=== PATIENT | female | born 1995 | race Two or more races ===

== ENCOUNTER 2025-06-22 08:50 | Outpatient (CLI) | payer OTHER ==
[2025-06-22 09:49] LABS: Hemoglobin 15.9 g/dL (12.2-16.2); Urine Protein, UAD Negative (Negative)
[2025-06-22 09:51] LABS: Alanine Aminotransferase 24 U/L (7-40); Alkaline Phosphatase 104 U/L (46-116); Anion Gap 12 (5-15); BUN/Creatinine Ratio 15.4 (10.0-20.0); Blood Urea Nitrogen 14 mg/dL (9-23); Calcium 9.6 mg/dL (8.7-10.4); Carbon Dioxide 23 mmol/L (20-31); Chloride 106 mmol/L (98-107); Glucose 99 mg/dL (74-106); Hematocrit 46.0 % (36.0-46.0); Mean Corpuscular Hemoglobin 33.6 pg (28.0-32.0); Mean Corpuscular Volume 97.4 fL (80.0-100.0); Nucleated Red Blood Cells % 0.2 %; Potassium 4.1 mmol/L (3.5-5.1); Sodium 141 mmol/L (136-145); Total Protein 7.8 g/dL (5.7-8.2); Triglycerides 116 mg/dL (< 150)
[2025-06-22 09:52] LABS: Bilirubin, Total 0.4 mg/dL (0.2-1.0); HDL Cholesterol 58 mg/dL (40-59)
[2025-06-22 09:53] LABS: Albumin 5.0 g/dL (3.2-4.8); Cholesterol 209 mg/dL (< 200)
[2025-06-22 09:54] LABS: INR 0.97 (0.9-1.15); Partial Thromboplastin Time 26.5 SEC (24.5-34.5); Prothrombin Time 10.3 sec (9.3-11.8)
[2025-06-22 10:23] LABS: Iron 78.0 ug/dL (50-170)
[2025-06-22 10:26] LABS: Total Iron Binding Capacity 311.0 ug/dL (250-425)
[2025-06-22 12:08] LABS: Hepatitis A Total Antibody Positive (Negative); Hepatitis B Surface Antigen Negative (Negative); Hepatitis C Antibody Negative (Negative)
[2025-06-24 06:06] LABS: Chlamydia Trachomatis, NAA Negative (Negative); Neisseria gonorrhoeae, NAA Negative (Negative)
== END 2025-06-25 17:00 | disposition home or self-care (01) ==
LOC: LAB 08:50
PROVIDERS: ATTEND Nurse Practitioner Family
DX: E78.5 Hyperlipidemia, unspecified (principal); E55.9 Vitamin D deficiency, unspecified; D64.9 Anemia, unspecified; Z11.3 Encounter for screening for infections with a predominantly sexual mode of transmission
CPT/HCPCS: 36415; 80053; 80061; 81001; 82607; 83036; 83540; 83550; 84443; 85025; 85610; 85730; 86703; 86704; 86706; 86708; 86780; 86803; 87340